=== PATIENT | male | born 1960 | race Caucasian/White ===

== ENCOUNTER 2022-05-23 07:50 | Outpatient (CLI) | payer OTHER, SELFPAY ==
[2022-05-23 14:37] LABS: PSA Diagnostic* 6.69 ng/mL (0.10-4.00)
== END 2022-05-23 07:51 | disposition home or self-care (01) ==
PROVIDERS: PCP Family Medicine; Visit Provider Family Medicine
DX: R97.20 Elevated prostate specific antigen [PSA] (principal); R63.4 Abnormal weight loss
CPT/HCPCS: 84153; 84443

== ENCOUNTER 2025-05-18 10:45 | Outpatient (CLI) | payer OTHER, SELFPAY | END 2025-05-18 10:46 | disposition home or self-care (01) | PROVIDERS: PCP Family Medicine; Visit Provider Family Medicine | DX: Z01.818 Encounter for other preprocedural examination (principal); E78.5 Hyperlipidemia, unspecified | CPT/HCPCS: 80048; 80061 ==